=== PATIENT | male | born 1985 | race Caucasian/White ===

== ENCOUNTER 2017-06-03 08:41 | Emergency (ER) | payer OTHER ==
[~2017-06-03] VITALS: Ht 152.4 cm; Wt 69.8 kg
[2017-06-03 09:01] VITALS: Ht 152.4 cm; Wt 69.8 kg
[2017-06-03 10:04] VITALS: BP 125/80
== END 2017-06-03 10:04 | disposition home or self-care (01) ==
LOC: ED 08:41
DX: K64.4 Residual hemorrhoidal skin tags (principal); R03.0 Elevated blood-pressure reading, without diagnosis of hypertension